=== PATIENT | male | born 1960 | race Caucasian/White ===

== ENCOUNTER 2025-03-16 16:02 | Inpatient (IN) | payer MEDICARE ==
[~2025-03-16] VITALS: Ht 188 cm; Wt 99.2 kg
[2025-03-16] MEDS ORDERED: METF-1211 PO (16:21)
[2025-03-16] MEDS ORDERED: ROSU10TA72 PO (16:21)
[2025-03-16] MEDS ORDERED: INSULIN SQ (16:21)
[2025-03-16 20:44] LABS: EOSINOPHILS % (AUTO) 1.2 % (1.0-6.0); HEMOGLOBIN 13.7 g/dL (13.5-17.5); LYMPHOCYTES # (AUTO) 2.8 K/uL (1.0-4.8); LYMPHOCYTES % (AUTO) 28.8 % (22.0-44.0); MEAN CORPUSCULAR HEMOGLOBIN 29.6 pg (26.0-34.0); MEAN CORPUSCULAR HGB CONC 34.2 G/dL (31.0-37.0); MEAN CORPUSCULAR VOLUME 87 fL (80-100); MONOCYTES # (AUTO) 0.7 K/uL (0.1-1.0); MONOCYTES % (AUTO) 7.2 % (2.0-9.0); NEUTROPHILS # (AUTO) 6.1 K/uL (1.8-7.7); NEUTROPHILS % (AUTO) 61.8 % (40.0-70.0); PLATELET COUNT (AUTO) 307 K/uL (150-450); RED BLOOD CELL COUNT(AUTO) 4.62 MIL/uL (4.50-5.90); RED CELL DISTRIBUTION WIDTH 13.9 % (11.5-14.5); WHITE BLOOD COUNT (AUTO) 9.9 K/uL (4.5-11.0)
[2025-03-16 20:48] LABS: ANION GAP 8 mmol/L (8-16); CALCIUM, TOTAL 9.1 mg/dL (8.8-10.5); CARBON DIOXIDE 29 mmol/L (22-29); CHLORIDE 105 mmol/L (98-107); CREATININE 1.13 mg/dL (0.60-1.30); GLOMERULAR FILTR. RATE CALC > 60 mL/min (>60); GLUCOSE,RANDOM 110 mg/dL (70-110); POTASSIUM 3.6 mmol/L (3.5-5.1); SODIUM SERUM 142 mmol/L (136-145); UREA NITROGEN, BLOOD 13 mg/dL (7-18)
[2025-03-16 20:58] LABS: TROPONIN I-HIGH SENSITIVITY 12 ng/L (<76)
[2025-03-16] MEDS ORDERED: ONDANSETRON HCL 4 MG/2 ML VIAL IVP PRN (21:30)
[2025-03-16] MEDS ORDERED: INSULIN LISPRO 100 UNITS/ML SQ PRN (21:30)
[2025-03-16] MEDS ORDERED: DEXTROSE 50%-WATER 25 GM/50 ML SYRINGE IVP PRN (21:30)
[2025-03-16] MEDS ORDERED: INSLAN SQ (21:32)
[2025-03-16] MEDS: DEXTROSE 5%-LACTATED RINGERS 1,000 ML IV ONE (21:52)
[2025-03-16 23:55] VITALS: BP 148/78; PULSE 80; RESP 20; TEMP 98.2; O2SAT 98
[2025-03-17 02:11] LABS: GLUCOMETER DEV NAME(LOC) 6N.1B; GLUCOSE,POINT OF CARE 140 MG/DL (70-110)
[2025-03-17 04:23] VITALS: BP 139/76; PULSE 79; RESP 18; TEMP 98; O2SAT 98
[2025-03-17 04:24] LABS: APPEARANCE,URINE CLEAR (CLEAR); BILIRUBIN,URINE NEGATIVE (NEGATIVE); COLOR,URINE LIGHT YELLOW (YELLOW); GLUCOSE, URINE (UA) NEGATIVE (NEGATIVE); KETONES,URINE NEGATIVE (NEGATIVE); LEUKOCYTE ESTERASE ,URINE NEGATIVE (NEGATIVE); NITRATE,URINE NEGATIVE (NEGATIVE); OCCULT BLOOD,URINE NEGATIVE (NEGATIVE); PH,URINE 5.5 (5.0-8.0); PROTEIN,URINE TRACE mg/dL (NEGATIVE); UROBILINOGEN,URINE <=1.0 mg/dL (<=1.0)
[2025-03-17 07:11] LABS: EOSINOPHILS % (AUTO) 1.3 % (1.0-6.0); HEMATOCRIT 39.7 % (41-53); HEMOGLOBIN 13.7 g/dL (13.5-17.5); LYMPHOCYTES # (AUTO) 1.8 K/uL (1.0-4.8); LYMPHOCYTES % (AUTO) 23.4 % (22.0-44.0); MEAN CORPUSCULAR HEMOGLOBIN 29.7 pg (26.0-34.0); MEAN CORPUSCULAR HGB CONC 34.5 G/dL (31.0-37.0); MEAN CORPUSCULAR VOLUME 86 fL (80-100); MONOCYTES # (AUTO) 0.6 K/uL (0.1-1.0); MONOCYTES % (AUTO) 7.9 % (2.0-9.0); NEUTROPHILS # (AUTO) 5.2 K/uL (1.8-7.7); NEUTROPHILS % (AUTO) 66.4 % (40.0-70.0); PLATELET COUNT (AUTO) 288 K/uL (150-450); RED CELL DISTRIBUTION WIDTH 13.5 % (11.5-14.5); WHITE BLOOD COUNT (AUTO) 7.9 K/uL (4.5-11.0)
[2025-03-17 07:25] LABS: ANION GAP 8 mmol/L (8-16); CALCIUM, TOTAL 8.9 mg/dL (8.8-10.5); CARBON DIOXIDE 27 mmol/L (22-29); CHLORIDE 105 mmol/L (98-107); CREATININE 1.06 mg/dL (0.60-1.30); GLOMERULAR FILTR. RATE CALC > 60 mL/min (>60); GLUCOSE,RANDOM 147 mg/dL (70-110); POTASSIUM 3.8 mmol/L (3.5-5.1); SODIUM SERUM 140 mmol/L (136-145); UREA NITROGEN, BLOOD 12 mg/dL (7-18)
[2025-03-17 08:36] LABS: GLUCOMETER DEV NAME(LOC) 4E.2; GLUCOSE,POINT OF CARE 133 MG/DL (70-110)
[2025-03-17] MEDS: DOCUSATE SODIUM 100 MG CAPSULE PO SCH (08:46)
[2025-03-17 08:51] VITALS: BP 132/71; PULSE 68; RESP 17; TEMP 97.9; O2SAT 96
[2025-03-17] MEDS: PANTOPRAZOLE SODIUM 40 MG/VIAL IVP SCH (11:32)
[2025-03-17] MEDS: NICOTINE 21 MG/24 HOUR PATCH TD SCH (11:32)
[2025-03-17] MEDS ORDERED: SODIUM CHLORIDE 0.9% 1,000 ML ONE (13:17)
[2025-03-17] MEDS: SODIUM CHLORIDE 0.9% 1,000 ML IV ONE (14:20)
[2025-03-17] MEDS ORDERED: FLUMAZENIL 0.1 MG/ML 5 ML VIAL IVP ONE (14:47)
[2025-03-17] MEDS ORDERED: SODIUM TETRADECYL SULFATE 3% 60 MG/2 ML VIAL IVP ONE (14:47)
[2025-03-17] MEDS ORDERED: NALOXONE HCL 0.4 MG/ML VIAL ONE (14:47)
[2025-03-17] MEDS ORDERED: DiphenhydrAMINE HCL 50 MG/ML VIAL ONE (14:47)
[2025-03-17] MEDS ORDERED: EPINEPHrine 1:10,000 [1 MG/10 ML] SYRINGE ONE (14:48)
[2025-03-17] MEDS ORDERED: ATROPINE SULFATE 0.1 MG/ML 10 ML SYRINGE IVP ONE (14:48)
[2025-03-17] MEDS ORDERED: MIDAZOLAM HCL 2 MG/2 ML VIAL ONE (14:49)
[2025-03-17] MEDS ORDERED: FentaNYL CITRATE PF 100 MCG/2 ML VIAL ONE (14:49)
[2025-03-17 16:55] LABS: GLUCOMETER DEV NAME(LOC) 6N.1B; GLUCOSE,POINT OF CARE 123 MG/DL (70-110)
[2025-03-17 17:10] VITALS: BP 127/73; PULSE 67; RESP 20; TEMP 98.2; O2SAT 98
[2025-03-17 20:25] VITALS: BP 135/69; PULSE 67; RESP 20; TEMP 97.9; O2SAT 94
[2025-03-17 22:05] LABS: GLUCOMETER DEV NAME(LOC) 6N.1B; GLUCOSE,POINT OF CARE 122 MG/DL (70-110)
[2025-03-17] MEDS: HEPARIN SODIUM,PORCINE 5,000 UNITS/ML VIAL SQ SCH (23:56)
[2025-03-18 05:42] VITALS: BP 133/75; PULSE 72; RESP 20; TEMP 98.1; O2SAT 94
[2025-03-18 06:46] LABS: GLUCOMETER DEV NAME(LOC) 6N.1B; GLUCOSE,POINT OF CARE 128 MG/DL (70-110)
[2025-03-18 07:00] VITALS: BP 139/76; PULSE 72; RESP 19; TEMP 97.7; O2SAT 98
[2025-03-18] MEDS ORDERED: PANT-31 PO (10:46)
[2025-03-18] MEDS: ACETAMINOPHEN 325 MG TABLET PO PRN (11:37)
[2025-03-19 01:01] LABS: GLUCOMETER DEV NAME(LOC) 6N.1B; GLUCOSE,POINT OF CARE 103 MG/DL (70-110)
== END 2025-03-18 13:18 | disposition home or self-care (01) | DRG 395 ==
LOC: EMS 16:02 → EDH 21:54 → 4E 03-17
PROVIDERS: ADMIT Internal Medicine; ATTEND Internal Medicine
PROC: 0DJ08ZZ Inspection of Upper Intestinal Tract, Via Natural or Artificial Opening Endoscopic (ICD-10-PCS; principal; 2025-03-17 16:05)
DX: T18.8XXA Foreign body in other parts of alimentary tract, initial encounter (principal); E86.0 Dehydration; E11.9 Type 2 diabetes mellitus without complications; J44.9 Chronic obstructive pulmonary disease, unspecified; W44.F3XA Food entering into or through a natural orifice, initial encounter; I10 Essential (primary) hypertension; F17.210 Nicotine dependence, cigarettes, uncomplicated; E78.00 Pure hypercholesterolemia, unspecified; Z79.899 Other long term (current) drug therapy; Y93.89 Activity, other specified; Y92.89 Other specified places as the place of occurrence of the external cause; Y99.8 Other external cause status; R00.0 Tachycardia, unspecified
CPT/HCPCS: 71046; 80048; 81003; 82962; 83690; 83735; 84484; 85025; 93005; 99285; G0378; J0171; J0461; J1200; J1644; J2250; J2310; J2470; J3010; J3490; J7030; 36415-L1; 36415-TC